=== PATIENT | female | born 2000 | race African-American/Black ===

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

== ENCOUNTER 2019-02-28 05:05 | Emergency (ER) | payer MEDICAID ==
[~2019-02-28] VITALS: Ht 162.6 cm; Wt 72.6 kg
[2019-02-28 05:27] LABS: BILIRUBIN,URINE NEGATIVE (NEG); CLARITY,URINE CLEAR; COLOR,URINE YELLOW; NITRITE,URINE NEGATIVE (NEG); PH,URINE 8.5; PROTEIN,URINE NEGATIVE (NEG-TRACE); UROBILINOGEN,URINE 0.2 mg/dL (0.2 mg/dL)
--- NOTE | 2019-02-28 05:29 | PHYS DOC ---
Past Medical History Past Medical History: No Pertinent History Past Surgical History: No Surgical History Alcohol Use: None Drug Use: None Adult General Chief Complaint Chief Complaint: LOWER BACK PAIN OR INJURY [facility] HPI 18-year-old female presents to the emergency department with complaints of abdominal pain, back pain starting approximate one hour ago. Patient is 18 weeks 4/7 days . She denies any leakage of fluid, no bleeding, no burning with urination, no discharge. She denies any complications with to date. She follows at with OB. She did have some vomiting this morning however that has subsequently resolved. Patient states the pain is fairly constant, she denies intermittent pain. She describes decreased movement, states she felt baby move yesterday more. heart tones are assessed in the 150s. Nothing makes her pain worse, nothing makes her pain better Review of Systems Review of Systems Constitutional: Denies fever or chills [] Respiratory: Denies cough or shortness of breath [] Cardiovascular: No additional information not addressed in HPI [] GI: lower abdominal pain, no nausea, + vomiting, no bloody stools or diarrhea [] : Denies dysuria or hematuria, vaginal bleeding or dishcarge[] Musculoskeletal: low back pain Integument: Denies rash or skin lesions [] Neurologic: Denies headache, focal weakness or sensory changes [] All other systems were reviewed and found to be within normal limits, except as documented in this note. Allergies Allergies Allergies Coded Allergies Type Severity Reaction Last Updated Verified No Known Drug Allergies 02/28/19 No Physical Exam Physical Exam Constitutional: Well developed, well nourished, no acute distress, non-toxic appearance. [] HENT: Normocephalic, atraumatic, bilateral external ears normal, oropharynx moist, no oral exudates, nose normal. [] Eyes: PERRLA, EOMI, conjunctiva normal, no discharge. [] Cardiovascular:Heart rate regular rhythm, no murmur [] Lungs & Thorax: Bilateral breath sounds clear to auscultation [] Abdomen: Bowel sounds normal, soft, mild TTP, gravid uterus, no masses, no pulsatile masses. [] Skin: Warm, dry, no erythema, no rash. [] Back: No tenderness, no CVA tenderness. [] Extremities: No tenderness, no edema. [] Neurologic: Alert and oriented X 3, no focal deficits noted. [] Psychologic: Affect normal, judgement normal, mood normal. [] Current Patient Data Vital Signs Vital Signs Date Time Temp Pulse Resp B/P (MAP) Pulse Ox O2 Delivery O2 Flow Rate FiO2 02/28/19 05:05 97.8 83 16 126/59 (81) 100 Room Air 97.8 Lab Values Laboratory Tests Test 02/28/19 05:11 Urine Collection Type Unknown Urine Color Yellow Urine Clarity Clear Urine pH 8.5 Urine Specific [place] 1.010 Urine Protein Negative mg/dL (NEG-TRACE) Urine Glucose (UA) Negative mg/dL (NEG) Urine Ketones (Stick) Trace mg/dL (NEG) Urine Blood Negative (NEG) Urine Nitrite Negative (NEG) Urine Bilirubin Negative (NEG) Urine Urobilinogen Dipstick 0.2 mg/dL (0.2 mg/dL) Urine Leukocyte Esterase Moderate (NEG) Urine RBC 0 /HPF (0-2) Urine WBC 11-20 /HPF (0-4) Urine Squamous Epithelial Cells Many /LPF Urine Bacteria Moderate /HPF (0-FEW) Urine Mucus Slight /LPF EKG EKG [] Radiology/Procedures Radiology/Procedures [] Course & Med Decision Making Course & Med Decision Making Pertinent Labs and Imaging studies reviewed. (See chart for details) []18-year-old female presents to the emergency department with complaints of abdominal pain, back pain starting approximate one hour ago. Patient is 18 weeks 4/7 days . She denies any leakage of fluid, no bleeding, no burning with urination, no discharge. She denies any complications with to date. She follows at with OB. She did have some vomiting this morning however that has subsequently resolved. Patient states the pain is fairly constant, she denies intermittent pain. She describes decreased movement, states she felt baby move yesterday more. heart tones are assessed in the 150s. Nothing makes her pain worse, nothing makes her pain better FHT's 150's Labs/US pending Transferred care to Dr. Lazcano - discussed case and will defer disposition after result of labs/US reviewed Nacho Disclaimer Nacho Disclaimer This electronic medical record was generated, in whole or in part, using a voice recognition dictation system. Departure Departure Referrals: NO PCP (PCP) LEXII PINEDA MD Feb 28, 2019 05:29
[2019-02-28 05:32] LABS: SQUAMOUS EPITHELIAL CELL,UR MANY /LPF
[2019-02-28 05:33] LABS: BACTERIA,URINE MODERATE /HPF (0-FEW); RBC,URINE 0 /HPF (0-2)
[2019-02-28] MEDS: ACETAMINOPHEN 500 MG TABLET PO ONE (06:00)
[2019-02-28] MEDS: ONDANSETRON ODT 4 MG TAB.RAPDIS. PO ONE (06:15)
[2019-02-28 06:25] LABS: BASO % 0 % (0-3); EOS # 0.2 x10^3/uL (0.0-0.7); EOS % 2 % (0-3); HEMATOCRIT 33.7 % (36.0-47.0); HEMOGLOBIN 11.6 g/dL (12.0-15.5); LYMPH # 0.8 x10^3/uL (1.0-4.8); LYMPH % 8 % (24-48); MEAN CORPUSCULAR HEMOGLOBIN 29 pg (25-35); MEAN CORPUSCULAR HGB CONC 34 g/dL (31-37); MEAN CORPUSCULAR VOLUME 85 fL (79-100); MONO # 0.5 x10^3/uL (0.0-1.1); MONO % 5 % (0-9); NEUT # 8.4 x10^3/uL (1.8-7.7); NEUT % 85 % (31-73); PLATELET COUNT 259 x10^3/uL (140-400); RED BLOOD COUNT 3.94 x10^6/uL (3.50-5.40); RED CELL DISTRIBUTION WIDTH 15.2 % (11.5-14.5)
[2019-02-28 06:27] LABS: CALCIUM 8.6 mg/dL (8.5-10.1); CREATININE 0.5 mg/dL (0.6-1.0); GFR 192.3; POTASSIUM 3.6 mmol/L (3.5-5.1)
--- NOTE | 2019-02-28 06:28 | RAD ---
Exam: Ultrasound OB limited Indication: Abdominal pain Technique: Real-time grayscale and color Doppler images of the pelvis were obtained by the department inspecting and testing lead hand. Comparisons: None FINDINGS: There is a single live intrauterine gestation with heart rate measured at 150 bpm. measurements as follows: BPD: 4.0 cm corresponding to 18 weeks 0 days Head circumference: 15.4 cm corresponding to 18 weeks 2 days Abdominal circumference: 13.0 cm corresponding to 18 weeks 4 days Femur length: 3.1 cm corresponding to 19 weeks 5 days Estimated weight 266 g Cervix is measured at 3.8 cm in length. Placenta is anterior and appears normal. IMPRESSION: 1. Single live intrauterine gestation measuring 18 weeks 5 days by current ultrasound. Correlate with LMP or prior dating ultrasound. 2. Dedicated survey is recommended in the nonemergent setting if not already performed. Electronically signed by: Nathan Sandoval MD (02/28/2019 6:25 AM) [id number]
[2019-02-28 06:32] LABS: ALBUMIN/GLOBULIN RATIO 0.7 (1.0-1.7); TOTAL BILIRUBIN 0.3 mg/dL (0.2-1.0); TOTAL PROTEIN 7.1 g/dL (6.4-8.2)
[2019-02-28 07:45] VITALS: BP 101/64
--- NOTE | 2019-02-28 08:52 | RAD ---
EXAM: MRI pelvis without contrast. HISTORY: Right lower quadrant pain in . Assess for appendicitis. TECHNIQUE: MRI of the pelvis was performed without intravenous contrast. COMPARISON: None. FINDINGS: The cecum is included along the right lower quadrant. No dilated tubular structure or inflammatory change is identified to indicate acute appendicitis. There is no evidence of small bowel obstruction. The included portions of both kidneys reveal no hydronephrosis. The gallbladder is not distended. A single fetus is in vertex presentation. The placenta is anterior. There is no evidence of abruption. Both adnexa are unremarkable. IMPRESSION: 1. No evidence of appendicitis. No cause for pain is identified. Electronically signed by: Aleena Shah MD (02/28/2019 8:49 AM) [facility]
[2019-02-28] MEDS ORDERED: CEPH-264 PO (09:07)
[2019-02-28] MEDS: cefTRIAXone IV Push 1 GM VIAL. IVP ONE (09:27)
== END 2019-02-28 09:57 | disposition home or self-care (01) ==
LOC: ER 05:05
DX: O21.9 Vomiting of pregnancy, unspecified (principal); R10.31 Right lower quadrant pain; M54.5 Low back pain; Z3A.18 18 weeks gestation of pregnancy
CPT/HCPCS: 36415; 72195; 76815; 80053; 81001; 85025; 87086; 96374; 99285; J0696; Q0162